=== PATIENT | male | born 1945 | race Caucasian/White ===

== ENCOUNTER 2017-10-29 07:59 | Emergency (ER) | payer MEDICARE | END 2017-10-29 09:01 | disposition home or self-care (01) | LOC: BURERS 07:59 | DX: J44.1 Chronic obstructive pulmonary disease with (acute) exacerbation (principal); J06.9 Acute upper respiratory infection, unspecified; E78.5 Hyperlipidemia, unspecified; F17.210 Nicotine dependence, cigarettes, uncomplicated; I10 Essential (primary) hypertension; Z79.82 Long term (current) use of aspirin; Z79.899 Other long term (current) drug therapy | CPT/HCPCS: 87804; 99283 ==